=== PATIENT | female | born 1980 | race African-American/Black ===

== ENCOUNTER 2017-05-02 19:21 | Emergency (ER) | payer MEDICAID ==
[~2017-05-02] VITALS: Ht 162.6 cm; Wt 69.4 kg
[2017-05-02 19:26] VITALS: BP 140/98
[2017-05-02] MEDS ORDERED: diphenhydrAMINE HCL 50 MG CAPSULE ONE (19:46)
[2017-05-02] MEDS ORDERED: diphenhydrAMINE HCL 25 MG CAPSULE PO ONE (20:00)
== END 2017-05-02 20:03 | disposition home or self-care (01) ==
LOC: ER 19:23
DX: T50.995A Adverse effect of other drugs, medicaments and biological substances, initial encounter (principal); Y92.89 Other specified places as the place of occurrence of the external cause; Z88.0 Allergy status to penicillin
CPT/HCPCS: A4606; Q0163; Z7610

== ENCOUNTER 2017-05-14 22:56 | Emergency (ER) | payer MEDICAID ==
[~2017-05-14] VITALS: Ht 162.6 cm; Wt 69.4 kg
[2017-05-14 23:17] VITALS: BP 130/77
[2017-05-15] MEDS ORDERED: predniSONE 20 MG TABLET ONE (00:35)
[2017-05-15] MEDS ORDERED: predniSONE 20 MG TABLET PO ONE (01:00)
== END 2017-05-15 00:50 | disposition home or self-care (01) ==
LOC: ER 22:58
DX: T36.0X1A Poisoning by penicillins, accidental (unintentional), initial encounter (principal); Y92.89 Other specified places as the place of occurrence of the external cause; Z88.0 Allergy status to penicillin
CPT/HCPCS: A4606; Z7610

== ENCOUNTER 2018-05-08 13:30 | Emergency (ER) | payer MEDICAID ==
[~2018-05-08] VITALS: Ht 162.6 cm; Wt 72.6 kg
[2018-05-08 13:38] VITALS: BP 138/83
== END 2018-05-08 14:22 | disposition home or self-care (01) ==
LOC: ER 13:32
DX: M25.572 Pain in left ankle and joints of left foot (principal); Z88.0 Allergy status to penicillin; Z60.2 Problems related to living alone; Z90.89 Acquired absence of other organs
CPT/HCPCS: A4606; Z7610